=== PATIENT | female | born 1950 | race Caucasian/White ===

== ENCOUNTER 2017-07-05 05:58 | Day surgery (SDC) | payer OTHER, BC ==
[2017-07-04 11:27] LABS: Urine Appearance CLEAR; Urine Bilirubin NEGATIVE (NEG); Urine Blood 2+ (NEG); Urine Color YELLOW; Urine Glucose NEGATIVE (NEG); Urine Protein NEGATIVE (NEG); Urine Urobilinogen 0.2 mg/dL (0.2-1.0)
[2017-07-04 11:27] LABS: Absolute Lymphocytes (CBC) 1.6 K/uL (0.7-4.9); Absolute Monocytes 0.6 K/uL (0.1-1.3); Absolute Neutrophil 4.2 K/uL (1.8-8.0); Basophils % 0.9 % (0-1.3); Eosinophils % 1.3 % (0-4.4); Hematocrit 46.5 % (36.0-45.0); Lymphocytes % 25.1 % (15.3-44.8); MCH 28.9 pg (27.0-35.0); MCV 88.7 fL (80-100); Monocytes % 8.6 % (3.3-12.3); RBC Red Blood Cell Count 5.25 M/uL (3.86-4.86)
[2017-07-04 11:40] LABS: Protime INR 0.97
[2017-07-04 11:44] LABS: BUN Blood Urea Nitrogen 16 mg/dL (6-20); Bicarbonate 29 mEq/L (21-31); Glucose Level 99 mg/dL (65-120); Potassium 4.6 mEq/L (3.6-5.0); Sodium Level 138 mEq/L (135-145)
[2017-07-04 11:48] LABS: Urine Microscopic Reflex NO UMIC
[2017-07-05] MEDS ORDERED: Ringers Lactate 1,000 ML IV ONE ×2 (06:01→11:38)
[2017-07-05] MEDS ORDERED: CEFAZOLIN/SWI 1gm 1 GM/10 ML SYR ONE ×2 (06:01→07:04)
[2017-07-05] MEDS ORDERED: FENTANYL CITR 250 MCG/5 ML ONE ×2 (06:58→09:02)
[2017-07-05] MEDS ORDERED: PROPOFOL 200 MG/20 ML VIAL IV ONE (06:58)
[2017-07-05] MEDS ORDERED: MIDAZOLAM HCL 2 MG/2 ML INJ ONE (06:58)
[2017-07-05] MEDS ORDERED: ONDANSETRON HCL 40 MG/20 ML VIAL ONE (06:59)
[2017-07-05] MEDS ORDERED: ROCURONIUM 50 MG/5 ML VIAL IV ONE (07:01)
[2017-07-05] MEDS ORDERED: NA CHLORIDE 0.9% 100 ML IV ONE (07:03)
[2017-07-05] MEDS ORDERED: VASOPRESSIN 20 UNIT/ML VIAL ONE (07:03)
[2017-07-05] MEDS ORDERED: VANCOMYCIN 1 GM/250 ML BAG ONE (07:41)
[2017-07-05] MEDS: Ringers Lactate 1,000 ML IV ONE ×2 (09:02→09:03)
[2017-07-05] MEDS ORDERED: FENTANYL CITR 100 MCG/2 ML ONE (10:33)
[2017-07-05] MEDS ORDERED: NALOXONE 0.4 MG/ML VIAL ONE (10:57)
[2017-07-05] MEDS ORDERED: MEPERIDINE HCL 25 MG/0.5 ML ONE (11:20)
[2017-07-05] MEDS ORDERED: METOCLOPRAMIDE 10 MG/2mL INJ ONE (11:20)
[2017-07-05] MEDS ORDERED: PROMETHAZINE 25 MG/ML VIAL ONE (11:29)
[2017-07-05 11:59] VITALS: O2SAT 98
[2017-07-05] MEDS ORDERED: Ringers Lactate 1,000 ML IV SCH ×2 (12:00→13:00)
[2017-07-05] MEDS ORDERED: MEPERIDINE HCL 50 MG/ML AMP IM PRN (12:01)
[2017-07-05] MEDS ORDERED: PROMETHAZINE 25 MG/ML VIAL IV PRN (12:02)
[2017-07-05] MEDS ORDERED: PROMETHAZINE 25 MG TABLET PO PRN (12:21)
[2017-07-05 15:32] VITALS: BMI 21.2
[2017-07-05] MEDS: VANCOMYCIN/NS 1 gm 1 GM/250 ML BAG IV SCH (20:00)
[2017-07-05] MEDS: ACETAMINOPHEN 325 MG TABLET PO PRN (21:01)
[2017-07-06] MEDS: ACETAMINOPHEN 325 MG TABLET PO PRN (04:40)
[2017-07-06 05:56] LABS: Absolute Lymphocytes (CBC) 1.1 K/uL (0.7-4.9); Absolute Monocytes 1.2 K/uL (0.1-1.3); Absolute Neutrophil 8.1 K/uL (1.8-8.0); Basophils % 0.3 % (0-1.3); Eosinophils % 0.2 % (0-4.4); Hematocrit 29.6 % (36.0-45.0); Lymphocytes % 10.8 % (15.3-44.8); MCH 29.5 pg (27.0-35.0); MCV 87.9 fL (80-100); MPV 7.4 fL (7.6-11.3); Monocytes % 11.1 % (3.3-12.3); RBC Red Blood Cell Count 3.36 M/uL (3.86-4.86)
[2017-07-06] MEDS: VANCOMYCIN/NS 1 gm 1 GM/250 ML BAG IV SCH (08:13)
[2017-07-06 10:54] LABS: Absolute Lymphocytes (CBC) 1.2 K/uL (0.7-4.9); Absolute Neutrophil 7.5 K/uL (1.8-8.0); Basophils % 0.3 % (0-1.3); Eosinophils % 0.3 % (0-4.4); Hematocrit 28.8 % (36.0-45.0); Lymphocytes % 12.2 % (15.3-44.8); MCH 29.6 pg (27.0-35.0); MCV 87.4 fL (80-100); MPV 7.7 fL (7.6-11.3); Monocytes % 9.8 % (3.3-12.3); RBC Red Blood Cell Count 3.29 M/uL (3.86-4.86)
[2017-07-06 11:46] VITALS: BP 107/54
[2017-07-06 11:48] VITALS: TEMP 99
--- NOTE | 2017-09-18 09:00 | OP ---
Date of Procedure: 07/05/2017 Surgeon: Steph Reddy MD Preoperative Diagnoses: Incomplete uterovaginal prolapse, the defect is predominantly in the posteri or compartment, especially in the lower aspect. 1.Rectocele. 2.Uterine prolapse. 3.Stress urinary incontinence. Postoperative Diagnoses: Incomplete uterovaginal prolapse, the defect is predominantly in the aviation operations specialist ior compartment, especially in the lower aspect. 1.Rectocele. 2.Uterine prolapse. 3.Stress urinary incontinence. 4.Small posterior enterocele and perineocele. Procedures Performed: Bilateral sacrospinous ligament fixation, colpopexy, rectocele repair with the Xenform graft placed mostly due to difficult to find the rectovaginal septum in the distal third of the posterior wall, posterior enterocele repair, and perineorrhaphy, then midurethral sling transvagi nal tension-free vaginal tape with a transobturator approach and cystoscopy. Specimens: None. Complications: Drains: Dukes catheter and vaginal packing. Urine Output: 100. Estimated Blood Loss: 200. Condition: The patient's condition is stable. Findings: POP-Q -2, -2, -4, 4, thin, and 7, 0, +2 and -3. Small posterior enterocele seen. Perinea l body was thin. Very thin vaginal lining that was friable. Very poor rectovaginal septum. Unable to find any in the lower one-third of the posterior wall. After the procedure was performed, rectal exam was negative, and cystoscopy showed patent urethral orifices on both sides, as well as no foreig n body in the bladder. Description Of Procedure: After informed consent was verified, the patient was taken back to the OR. She was placed in a supine fashion on the operating table. After general anesthesia was given, she was placed in a dorsal lithotomy position. Antibiotics were given preop. SCDs were started once th e patient was anesthetized on the table. After she was placed in the Rikki stirrups, examination was performed and POP-Q is as dictated above. Rectovaginal exam was performed as well and there was a v elisa thin posterior wall as well as very thin perineal body. Enterocele appeared to be present but wa s small. The uterine prolapse was mild; however given the defect in the posterior wall, there was a benefit from doing the colpopexy. Anterior wall defect when the level 1 support was restored pushing it back, did not appear to be remarkable at all, so this compartment was not planned to be operated on. Lower abdomen, vulva, vagina, and perineum were all prepped and draped in a sterile fashion. Dukes w as placed to drain the bladder and clamped after draining, retracted superiorly. Plan was to first s tart with a midurethral sling since this was the cleanest part of the procedure. After the lithotomy was placed in a high fashion, the midsection of the urethra was held with 2 Allis clamps, injected w ith dilute vasopressin 20 units in 50 cc of normal saline, 10 units was injected in the midline as we ll as on the sides of the tracks. Incision was then made in the midline in the midurethral area with the help of a scalpel. Thick flaps were developed and dissection was performed through the push-spr ead technique using the Metzenbaums to go underneath the inferior pubic ramus. Hugging this, an obtu rator space was entered, and the obturator membrane was popped. The tips of the scissors were opened up to create a wider tract and withdrawn out. A similar dissection was performed on the opposite si de. Then, the wing guide was taken, placed on the right side, and the spike passed with its exit poi nt 2 cm above and 1 cm lateral to the horizontal line dropped at the level of the external meatus and clitoris. The plastic sheaths were held with Kellys. Once these were pulled through, the plastic sheaths were held with Brooke clamps on both sides. Metzenbaum scissors were placed underneath the urethra for ten sioning. Once the plastic dilators were cut, the sling was adjusted and the sheaths were removed wit hout any problems. Then, the mesh was trimmed closely and flushed with the skin and removed. Sandrita riddle was rechecked after all this was done in the mid urethral area and it was optimal. Irrigation a nd suction were performed. Vaginal epithelium was closed with the help of 3-0 Vicryl in a continuous running locked fashion. Cystoscopy was performed. No evidence of any foreign body on either sides. The scope was retrieved. Dukes was replaced and retracted superiorly. A Reji was placed in the anterior wall. The posterior lip of the cervix was held with 1 Allis clam p. Once this was pushed back to the level of the ischial spines, there appeared to be good anterior support again. After confirming this, plan was to perform just a posterior wall repair and an apical repair. The perineum and the posterior wall were all injected with the same dilution vasopressin, a bout 30 cc was used. A triangular skin incision was made with the help of a scalpel at the level of the perineum. The Allis clamps were placed on either side of the vestibule. Once the skin was disse cted out, the perineum was in the midline dissected to enter the posterior compartment. Once I was i n the space, the incision was extended all the way with push-spread technique to the top, closed the cervix. Then, vaginal epithelium was raised from the underlying tissues and there was no evidence of any rectovaginal septum till at least the top 2/3rds of the vaginal canal. Once all the dissection was performed and the rectovaginal septum was , repair of the septum primarily was difficult due to the absence of good tissue here. Most likely, she had a distal defect, so site specific repa ir appeared to be extremely difficult. Posterior enterocele was visualized and displayed by aniket hoskins it. The lateral wall was dissected on both sides to access the pararectal space. Ischial spine wa s palpated and this was cleaned lateral to medial exposing the coccygeus muscle and then the sacrospi nous ligament. Once these were done on both sides, the space was created. Plan was to do a cervical pexy to the ischial spines using the Xenform biological graft. The graft was taken, about 9 cm on t he vertical side was cut, about 6 cm cut on the bottom, 1 cm taken out from the top in the midline, a nd small windows were created to take down the graft legs that would be tied down to the sacrospinous ligament. A trapezoid was created to narrow the Xenform down to shape the contour of the posterior compartment. Once this was done, the graft was left on the side. The Prolene sutures x2 were taken; one on each side about 2 cm medial and posterior to the ischial spine; firstly on the right, then on the left. These were tagged with the help of clamps. Once the Xenform graft was taken, then 2 Prol tobin sutures were taken, and they were attached in the midline on both sides to the cervix and the pos terior cervical ring so level 1 support can be restored. Then, the proximal end of the graft would b e attached to the sacrospinous ligament, keeping the uterus and cervix with it. Lateral sutures were placed on each sides of the PDS 2-0. There was 2 sutures on each side placed an d then marked on the graft as well and passed through this and all these were clamped. The sacrospin ous sutures were passed through the arms and clamped. Posterior enterocele was repaired before this was done with the help of 2-0 Vicryl in a pursestring fashion x1. The posterior enterocele was reduc ed. Then, the superior part of the rectovaginal septum was plicated with the help of interrupted 2-0 Vicryl sutures x3. Then, the perineal body was reconstructed with the help of 2-0 Vicryl. The remn ants of the deep transverse perineum were dissected and brought together. The external sphincter als o appeared to be spread apart, so all these were brought together with the help of Allis clamps and s utures were placed x4 with 2-0 Vicryl with a finger in the rectum as well as on the vagina. All the 4 sutures were placed, gloves were changed, and they were all tied together recreating a good perinea l body support. Once this was done, the distal part of the graft was attached to with the help of 2- 0 PDS to the newly built perineal body. Excess of the graft was trimmed and the sutures on the side were attached to the lateral ruiz as well and tied down x2 on each side. The uterosacral on the cer vical ring bites was tied down as well. The vaginal mucosa was slightly trimmed and there was lot of viability and following apart of this tissue which was trimmed. Then, 2-0 Vicryl was used to close the top 1/3rd of the vaginal epithelium. Then, the sacrospinous stitches were tied down without a lo ose knot on both sides. Then, closed the rest of the vaginal epithelium all the way to the level of the perineal body. With the help of a 3-0 Vicryl suture, subcutaneous suturing was done all the way on the perineal body and back up closed in a subcuticular fashion to bring the skin together and tyin g the stitch at the level of the vestibule. Rectal exam was performed. There was no evidence of any trauma here, either the sacrospinous bites or at the distal part. Then, the graft did not appear to be too tight, which was optimal, and the uterus appeared to be at least at -6 to -7. The posterior compartment defect was fully rectified. Cystoscopy was performed after changing of the gloves and ta dora the Dukes out. Strong jets of urine from both ureteric orifices. No evidence of any trauma in the bladder or foreign body. The Dukes was replaced after removing the cystoscope and draining the b ladder. Vaginal packing was placed in the vagina. The skin incisions on the midurethral tape were c losed with the help of Dermabond. Instrument, needle, and sponge counts x3 were correct at the end o f the case. The patient tolerated the procedure well. She will follow up with me and the plan was t o make a postop followup and routine care. LAWRENCE/MARIBELL Voice ID: [id number] Report ID: [id number]
== END 2017-07-06 11:40 | disposition home or self-care (01) ==
LOC: OR 05:58 → 2ND-WC 11:50 → OR 07-06 11:40
PROVIDERS: ATTEND Obstetrics & Gynecology
PROC: 0JUC0JZ Supplement of Pelvic Region Subcutaneous Tissue and Fascia with Synthetic Substitute, Open Approach (ICD-10-PCS; 2017-07-05)
PROC: 0HQ9XZZ Repair Perineum Skin, External Approach (ICD-10-PCS; 2017-07-05)
PROC: 0UQF7ZZ Repair Cul-de-sac, Via Natural or Artificial Opening (ICD-10-PCS; principal; 2017-07-05 07:00)
DX: N81.2 Incomplete uterovaginal prolapse (principal); N39.3 Stress incontinence (female) (male); N95.2 Postmenopausal atrophic vaginitis; R31.21 Asymptomatic microscopic hematuria
CPT/HCPCS: 36415 ×2; 57250; 57267; 57268; 80048; 81003; 85025 ×3; 85610; 85730; 86850; 86900; 86901; J0690 ×2; J2175; J2250; J2310; J2405; J2550 ×2; J2765; J3010; J3370 ×2

== ENCOUNTER 2022-08-25 09:53 | Day surgery (SDC) | payer OTHER, BC ==
[2022-08-23 10:38] LABS: Absolute Lymphocytes (CBC) 1.2 K/uL (0.7-4.9); Lymphocytes % 20.5 % (15.3-44.8); MCV 92.5 fL (80-100); MPV 6.7 fL (7.6-11.3); RBC Red Blood Cell Count 4.54 M/uL (3.86-4.86)
[2022-08-23 10:41] LABS: Specific Gravity 1.005 (1.005-1.030); Urine Bacteria <20 /HPF (<20); Urine Bilirubin NEGATIVE (Negative); Urine Blood 2+ (Negative); Urine Clarity Clear (Clear); Urine Color Colorless (Yellow); Urine Glucose NEGATIVE (Negative); Urine Protein NEGATIVE (Negative); Urine Urobilinogen Normal (Normal); Urine pH 6.5 (5.0-7.0)
[2022-08-25] MEDS ORDERED: SCOPOLAMINE HYDROBROMIDE PATCH TD ONE (10:22)
[2022-08-25] MEDS ORDERED: Ringers Lactate 1,000 ML IV ONE (10:22)
[2022-08-25] MEDS ORDERED: CEFAZOLIN SODIUM 2 GM/VIAL ONE (10:22)
[2022-08-25] MEDS ORDERED: MIDAZOLAM HCL 2 MG/2 ML INJ ONE (11:39)
[2022-08-25] MEDS ORDERED: LIDOCAINE 2% MPF 5 ML VIAL ONE (11:39)
[2022-08-25] MEDS ORDERED: FENTANYL CITR 250 MCG/5 ML ONE (11:39)
[2022-08-25] MEDS ORDERED: propofoL 200 MG/20 ML VIAL IV ONE (11:39)
[2022-08-25] MEDS ORDERED: ROCURONIUM 50 MG/5 ML VIAL IV ONE (11:39)
[2022-08-25] MEDS ORDERED: dexAMETHasone 10 MG/ML VIAL ONE (11:39)
[2022-08-25] MEDS ORDERED: KETAMINE HCL IN 0.9 % NACL 50 MG/5 ML SYRINGE IV ONE (11:40)
[2022-08-25] MEDS ORDERED: ONDANSETRON 4 MG/2 ML VIAL ONE ×2 (11:40→15:20)
[2022-08-25] MEDS: BUPIVACAINE 0.25% PF 30 ML VIAL ONE ×2 (13:05→13:08)
[2022-08-25] MEDS ORDERED: HYDRALAZINE HCL 20 MG/ML VIAL ONE (13:36)
[2022-08-25] MEDS: Ringers Lactate 1,000 ML IV ONE ×2 (13:55→14:14)
[2022-08-25] MEDS ORDERED: KETOROLAC 30 MG/ML INJ ONE (14:43)
[2022-08-25] MEDS ORDERED: Mastisol Adhesive Liq ONE (14:55)
[2022-08-25] MEDS ORDERED: PROMETHAZINE INJ 25 MG/ML AMP ONE (15:29)
[2022-08-25 16:21] VITALS: BP 137/66; TEMP 97.2
[2022-08-25] MEDS ORDERED: HYDROCODONE/APAP 5/325 MG TAB ONE (17:46)
[2022-08-25] MEDS ORDERED: IBUPROFEN 400 MG TAB ONE (17:57)
[2022-08-25] MEDS ORDERED: IBUPROFEN 200 MG TAB PO ONE (17:57)
[2022-08-25 19:31] VITALS: O2SAT 96
--- NOTE | 2022-08-26 03:30 | OP ---
Date of Procedure: 08/25/2022 Surgeon: Steph Reddy MD Net Developer Software Engineer C: Irina Houston. Preoperative Diagnoses: Postmenopausal bleeding and endometrial atypia. Postoperative Diagnoses: Postmenopausal bleeding and endometrial atypia, bowel and bladder adhesions . Procedures Performed: Total laparoscopic hysterectomy, bilateral salpingo-oophorectomy, pelvic washi ngs, cystoscopy, lysis of sigmoid adhesions, small bowel adhesions and bladder adhesions. These all took at least 30 minutes of the case. Ebl: 25. Urine Output: 150. Ringer's Lactate: 1400. Specimens: Pelvic washings, uterus, bilateral tubes and ovaries. Findings: The uterus was small. The anterior wall of the uterus where the bladder suspension was pe rformed vaginally was scarred to the anterior vaginal wall and on to the cervix because of the sacros pinous ligament fixation and cervical colpopexy. They were safely taken down and cystoscopy did not show any evidence of injury to the ureters or blad natalia. The right adnexa had paraovarian, paratubal cystic structure that was about 3 cm, mostly unremarkable other ovaries. There was small amount of endometriosis in the posterior cul-de-sac, where on the se tommy of the uterine lining, I was able to excise this from the uterosacral area and included with the specimen. The bowel adhesions of the small bowel to the right lower quadrant were seen. The appendix appeared to be normal. There was some scar tissue in the right lower quadrant from the cecum to the lateral a bdominal wall and sigmoid adhesions to the left lateral wall above and inferior to the level of natur al attachment of the colon. These were all taken down as well as ureters. No evidence of any anatom ic distortion. The patient is a 72-year-old, known to our practice through many years. She has had vaginal prolapse repair, especially in the posterior compartment, biologic graft repair with a midurethral sling. Chapis tellez has been doing very well. She has a past history of femoral hernia and repair. Her mother had history of uterine and colon cancer. The patient has been on vaginal estrogen 10 mcg twice a week and she has been doing well without any problems until she presented with sudden onset o f postmenopausal bleeding which is bright red blood, so she had a transvaginal ultrasound that was pe rformed and showed an endometrial stripe thickness of 7 mm with echogenic material in the uterine can al as well around the cervical canal. On hysteroscopy, she had extensive endometrial breakdown that was noted and hyperplastic tissue. No intracavitary mass was then seen. Endometrial curettage was p erformed, which was sent for pathology. The pathology report showed extensive glandular and stromal breakdown, adequate tissue with exogenous hormone effect, likely from progesterone. She had some epi thelium with reactive and degenerative atypia. No evidence of endometrial adenocarcinoma. Her patho logy was reviewed here in the local [facility] as well as at and I discussed the case wi th both pathologist. As patient was presented with her options, she definitely preferred to proceed with hysterectomy. Chapis tellez has postmenopausal bleeding that is not explained by any other risk factor other than her vaginal, estrogen, and her family history of uterine and colon cancer in her mother. She is in a healthy cond ition. She wanted to proceed with definitive treatment. Procedure In Detail: She was consented and taken back to OR and 2 g of Ancef were given. SCDs were placed and a time-out was done. Abdomen was prepped with ChloraPrep and vulva, vagina, and perineum with Betadine. Then proceeded with speculum exam of the vagina and anterior lip grasped with a singl e-tooth tenaculum. The cervix was dilated to 16-Turkish and a small cup VCare was introduced into taylor ce and fixed in place. Dukes was placed to drain the bladder and attached to retrograde filling. Th is area was draped. 1 cm infraumbilical incision was made with a scalpel using the open laparoscopy technique. Fascia wa s incised, tagged with 0 Vicryl sutures. Peritoneum entered sharply. Andrew introduced. Site of en try was checked and was unremarkable. The patient was placed in Trendelenburg position. Upper abdom inal surfaces were visualized as well as the site of entry after adequate insufflation and no abnorma lities were noted. After 10 suprapubic and 2 and 5 right and left lower quadrant ports were placed u nder direct vision and procedure started. Pelvic washings were first performed and handed off for pe rmanent pathology. After doing the pelvic cavity survey and noting the endometriosis on the left uterosacral distally cl ose to the uterine serosa and the right adnexal mass as discussed in the findings, bowel adhesions, s mall bowel on the right lower quadrant and sigmoid adhesions in the left lower quadrant and sidewall, all these were planned to be addressed. Lysis of bowel adhesions, sigmoid adhesions were taken down sharply with sharp dissection using sciss ors. Starting in the descending colon all the way down to the natural attachment of the sigmoid, adh esions were taken down, then further down below the lateral wall of the pelvis was also adhered. The se adhesions were taken down as well. Once the ureter was exposed through the peritoneum and appeare d to be undistorted in its course, then attention was directed to the small bowel. Smaller adhesions on the right lower quadrant had to be taken down and all for me to retract the small bowel to the up per abdominal cavity for good visualization of the right adnexa and the safe dissection here. Once t his was all done proceeded with hysterectomy. Hysterectomy and BSO: The IP ligament was isolated from the ureter and taken down with the help of t he LigaSure. Mesosalpinx and broad ligament were taken down to the level of the round ligament. The round ligament was taken down and anterior bladder flap was raised on the anterior wall of the vagin a and then posteriorly taken down to the level of the uterosacral on the back and went down to dissec t and take down the broad ligament with the LigaSure and vessels were exposed. On the opposite side, the IP, mesosalpinx, round ligament and broad ligament were all taken down and got time to rule out, lift the uterine vessels. Then, peritoneum anteriorly and posteriorly opened u p, posteriorly connected to the back from the opposite side, and then anteriorly connected to the baldo dder flap. Lysis of bladder adhesions: These were systematically taken down with sharp dissection as they were strongly adhered to the anterior vaginal wall. It was very difficult to descend the cup. The cup si ze even though the smallest available was used, this was too large for the vaginal apex where the jay pension has been done. The anterior vaginal wall was carefully dissected after filling and draining and then marking the det rusor muscle and the bladder borders. Paravesical spaces were also dissected and opened up. Then th is facilitated to some degree to the dissection plane. Staying in the midline, dissection was fly d down to an area just at the level of the cup. However, posteriorly the cup was seen to be fairly d istal than the cervix itself due to the narrowness of the vaginal apex. Once the vessels on the left side were taken down, the cardinal ligaments were taken down successivel y on each side. Then, once the dissection was carried all the way to the bottom of the cervix, which appeared to be elongated, then dissection was carried on the cardinal ligaments and further this hel ped me enter the vaginal canal with a monopolar hook blade. Once I got into it, the right lateral as pect, this was taken down over from the right side to the uterosacral on the right. Then, dissection was further carried to bring the bladder down past the cut, which she had barely got there, it was v elisa hard to dissect as there was scar tissue both in the area of the bladder pillars. This was caref ully taken down to avoid injury to the ureters. So, once it was adequately taken down for me to visu eric the entire cervix, this was grasped and a monopolar hook blade was used to perform a circumfere ntial colpotomy through the left side all the way connecting in the back. Specimen was detached and pulled out through the vagina intact with the tubes and ovaries. Thorough irrigation and suction were performed. The vaginal cuff was closed with the help of 2 inter rupted 0 PDS sutures on both ends and then a [id number] in the middle. At the top of the canal was fairly narrow, this was adequate closure for this patient. A EEA Sizer was placed in all efforts to reassure herself that the entire colpotomy was closed and in fact had no unrepaired or unattached areas. The bladder was filled and drained to check for any bladder injury and the 300 mL filled into the baldo dder were completely intact without having any leakage. Upper abdominal cavity was also surveyed for hemostasis. Once all this was given, we proceeded with removal of all the ports under direct vision . Fascia at the umbilicus closed with 0 Vicryl sutures, tied to each other and simple 0 Vicryl sutur e in the suprapubic area from fascial edge to fascial edge. All skin incisions were closed with inte rrupted 4-0 Monocryl and Steri-Strips were placed. Dukes was removed and cystoscopy was performed with 30-degree lens, normal saline, and a 17-Turkish sh eath. There was excellent distention in the bladder. The mucosa appeared to be unremarkable. Both ureteric orifices were patent and had strong jets of urine from them. The bladder was filled with 20 0 mL and left intact. Vaginal sponge was removed. Instrument and sponge counts were correct at the end of the procedure. The patient was recovered from anesthesia and taken to PACU in stable conditio n. Her was re-briefed on her procedure and findings and they have postoperative appointment. LAWRENCE/MARIBELL Voice ID: [id number] Report ID: [id number]
== END 2022-08-25 19:28 | disposition home or self-care (01) ==
LOC: OR 09:53
PROVIDERS: ATTEND Obstetrics & Gynecology
PROC: 0UT24ZZ Resection of Bilateral Ovaries, Percutaneous Endoscopic Approach (ICD-10-PCS; 2022-08-25)
PROC: 0UT74ZZ Resection of Bilateral Fallopian Tubes, Percutaneous Endoscopic Approach (ICD-10-PCS; 2022-08-25)
PROC: 0DNN4ZZ Release Sigmoid Colon, Percutaneous Endoscopic Approach (ICD-10-PCS; 2022-08-25)
PROC: 0TNB4ZZ Release Bladder, Percutaneous Endoscopic Approach (ICD-10-PCS; 2022-08-25)
PROC: 0UT94ZZ Resection of Uterus, Percutaneous Endoscopic Approach (ICD-10-PCS; principal; 2022-08-25 11:30)
DX: N95.0 Postmenopausal bleeding (principal); N85.9 Noninflammatory disorder of uterus, unspecified; K66.0 Peritoneal adhesions (postprocedural) (postinfection); N32.89 Other specified disorders of bladder
CPT/HCPCS: 85025; 81001; 36415; 86900; 86850; 86901; 58571; J2550; J0360; J2704; J2001; J3010; J1100; J2405 ×2; J7120 ×2; 88108; 88305; 88307; J2250